=== PATIENT | female | born 1980 | race African-American/Black ===

== ENCOUNTER 2023-11-15 17:28 | Emergency (ER) | payer OTHER ==
[~2023-11-15] VITALS: Ht 177.8 cm; Wt 100.0 kg
[2023-11-15 17:57] VITALS: PULSE 128; RESP 28; O2SAT 97
[2023-11-15] MEDS: SODIUM CHLORIDE 0.9% 1,000 ML IV ONE ×2 (18:50→20:15)
[2023-11-15 19:06] LABS: Basophils # (auto) 0.1 10 ^3/uL (0-0.2); Basophils % (auto) 0.4 % (0.0-2.0); Eosinophils # (auto) 0 10 ^3/uL (0-0.8); Eosinophils % (auto) 0.3 % (0.0-7.0); Hematocrit 36.1 % (36.0-46.0); Hemoglobin 11.9 g/dL (12.2-16.2); Lymphocytes # (auto) 1.7 10 ^3/uL (0.4-5.4); Lymphocytes % (auto) 11.1 % (10.0-50.0); Mean Corpuscular Hemoglobin 27.8 pg (28.0-32.0); Mean Corpuscular Volume 84.4 fL (80.0-100.0); Monocytes # (auto) 1.8 10 ^3/uL (0-1.3); Monocytes % (auto) 11.7 % (0.0-12.0); Neutrophils # (auto) 11.7 10 ^3/uL (1.6-8.6); Neutrophils % (auto) 76.5 % (37.0-80.0); Red Blood Cells 4.28 10^6/uL (4.0-5.20); Red Cell Distribution Width 15.7 % (11.8-14.3); White Blood Cell 15.3 10^3/uL (4.4-10.8)
[2023-11-15 19:17] LABS: Chloride 108 mmol/L (98-107); Potassium 3.6 mmol/L (3.5-5.1); Sodium 140 mmol/L (136-145)
[2023-11-15 19:18] LABS: Anion Gap 8 (5-15); Calcium 9.6 mg/dL (8.7-10.4); Carbon Dioxide 24 mmol/L (20-30)
[2023-11-15 19:23] LABS: BUN/Creatinine Ratio 13.2 (10.0-20.0); Blood Urea Nitrogen 12 mg/dL (9-23); Glucose 106 mg/dL (74-106)
[2023-11-15 19:35] VITALS: PULSE 124; RESP 16; O2SAT 98
[2023-11-15 21:59] LABS: Amphetamine Screen, Urine Neg (NEGATIVE); Barbiturate Scree,Urine Neg (NEGATIVE); Benzodiazephine Screen, Urine Neg (NEGATIVE); Cannabinoid Screen, Urine Neg (NEGATIVE); Cocaine Screen, Urine Neg (NEGATIVE); Opiate Scree,Urine Neg (NEGATIVE); Phencyclidine Screen, Urine Neg (NEGATIVE)
[2023-11-16 03:43] VITALS: BP 118/73; PULSE 80; RESP 18; TEMP 98; O2SAT 96
== END 2023-11-16 03:50 | disposition short-term general hospital (02) ==
LOC: ER 17:28
DX: R55 Syncope and collapse (principal); R10.2 Pelvic and perineal pain; R00.0 Tachycardia, unspecified; E11.9 Type 2 diabetes mellitus without complications
CPT/HCPCS: 36415; 80048; 80307; 80320; 84443; 84484; 84702; 85025; 85379; 93005; 96360; 96361; 99285; J7030